=== PATIENT | male | born 1965 | race African-American/Black ===

== ENCOUNTER 2017-01-19 11:52 | Emergency (ER) | payer MEDICAID, OTHER ==
[~2017-01-19] VITALS: Ht 172.7 cm; Wt 94.0 kg
[~2017-01-19 11:52] MED LIST: GLUCOMTESTSTRIPS XX; IBUP-232 PO; METF500 PO; ROBA750T3 PO
[2017-01-19 11:54] VITALS: BP 157/80; PULSE 64; RESP 14; TEMP 98.2; O2SAT 99
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
[2017-01-19] MEDS ORDERED: IBUPROFEN 800 MG TAB PO ONE (13:00)
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
[2017-01-19] MEDS ORDERED: PRED20 PO (13:37)
[2017-01-19] MEDS ORDERED: TRAM50TA PO (13:37)
[2017-01-19] MEDS ORDERED: CYCL1TAB29 PO (13:38)
== END 2017-01-19 14:13 | disposition home or self-care (01) ==
LOC: NEPK 11:52
DX: M54.41 Lumbago with sciatica, right side (principal); V43.52XA Car driver injured in collision with other type car in traffic accident, initial encounter; Y92.488 Other paved roadways as the place of occurrence of the external cause
CPT/HCPCS: 72110; 99284